=== PATIENT | female | born 1960 | race Caucasian/White ===

== ENCOUNTER → 2017-03-19 | Outpatient (CLI) | payer OTHER ==
[~2017-03-19] MED LIST: DIAZ5TAB PO; DICL75TA PO; ERYTOIN10 EACH EYE; GABA300C5 PO; HYDR-3533 PO; OMEP40CA2 PO; PANT40TA3 PO; PRED1SUS EACH EYE
[2017-03-19 10:54] LABS: AUTOMATED NEUTROPHIL # 4.8 TH/MM3 (1.8-7.7); BASOPHIL % 0.3 % (0.0-2.0); EOSINOPHIL # 0.1 TH/MM3 (0-0.4); HEMATOCRIT 38.7 % (35.0-46.0); HEMO FLAGS DIFF FINAL; LYMPH % 37.2 % (9.0-44.0); LYMPHOCYTE # 3.3 TH/MM3 (1.0-4.8); MEAN CELL VOLUME 95.3 FL (80.0-100.0); MEAN CORPUSCULAR HEMOGLOBIN 31.7 PG (27.0-34.0); MEAN CORPUSCULAR HGB CONC 33.3 % (32.0-36.0); MONO % 6.8 % (0.0-8.0); NEUT % 54.7 % (16.0-70.0); PLATELET COUNT 216 TH/MM3 (150-450); RED BLOOD COUNT 4.07 MIL/MM3 (4.00-5.30); RED CELL DISTRIBUTION WIDTH 13.6 % (11.6-17.2); WHITE BLOOD COUNT 8.8 TH/MM3 (4.0-11.0)
[2017-03-19 14:12] LABS: ALT (GPT) 21 U/L (10-53); ANION GAP 5 MEQ/L (5-15); AST (GOT) 21 U/L (15-37); BICARBONATE 29.6 MEQ/L (21.0-32.0); BLOOD UREA NITROGEN 20 MG/DL (7-18); CHLORIDE 108 MEQ/L (98-107); GLOMERULAR FILTRATION RATE 75 ML/MIN (>89); GLUCOSE,FASTING 86 MG/DL (74-99); POTASSIUM 4.2 MEQ/L (3.5-5.1); SODIUM (NA) 143 MEQ/L (136-145)
[2017-03-19 14:32] LABS: ALKALINE PHOSPHATASE 64 U/L (45-117); HDL CHOLESTEROL 71.3 MG/DL (40.0-60.0); LDL CHOLESTEROL 125 MG/DL (0-99); TOTAL BILIRUBIN ADULT 0.3 MG/DL (0.2-1.0)
== END ==
LOC: CLAB 10:28
PROVIDERS: ATTEND Family Medicine
DX: E78.5 Hyperlipidemia, unspecified (principal); K57.90 Diverticulosis of intestine, part unspecified, without perforation or abscess without bleeding; K44.9 Diaphragmatic hernia without obstruction or gangrene; F32.9 Major depressive disorder, single episode, unspecified; K22.70 Barrett's esophagus without dysplasia; M54.9 Dorsalgia, unspecified; G89.29 Other chronic pain
CPT/HCPCS: 36415; 80053; 80061; 84443; 85025

== ENCOUNTER 2017-03-22 12:16 | Emergency (ER) | payer OTHER ==
[~2017-03-22 12:16] MED LIST changes: -ERYTOIN10 EACH EYE; -HYDR-3533 PO; -PRED1SUS EACH EYE
--- NOTE | 2017-03-22 13:13 | PD ---
HPI . left cheek lesion Chief Complaint: left cheek lesion Time Seen by Provider: 12:15 Travel History International Travel<30 days: No Contact w/Intl Traveler<30days: No Traveled to known affect area: No History of Present Illness HPI 56-year-old female here with complaints of left cheek lesion. She first noticed lesion back in July 2016. She says that she tried popping it at that time and had some white thick substance come out. It has been present for the past several months. She recently saw her new primary care provider in the [facility] and was told that there was no infection at this time (past Thursday). However she was told to look out for signs of infection. She has been using some type of black salve at home to draw out any fluid. She is here because she thinks she may have an infection. She denies any fever or chills. There is no drainage from the site. She has no other complaints. She tells me she did not go to her manufacturing technician because she does not have insurance. vitals: Temperature 98.7, heart rate 67, respiratory rate 15, blood pressure 133 /85, O2 sat 99% PFS Past Medical History Arthritis: Yes (HEELS) Cancer: Yes (SQUAMOUS CELL (L. ARM)) Cardiovascular Problems: No (CARDIAC EVAL AUG 2015 - ALL WNL ) Cerebrovascular Accident: No Diabetes: No Diverticulitis: Yes Endocrine: No Gastrointestinal Disorders: Yes (gerd, diverticulitis) GERD: Yes Glaucoma: No Genitourinary: No Hepatitis: No Hiatal Hernia: Yes Hypertension: No Immune Disorder: No Musculoskeletal: Yes (arthritis in both feet with numbness and tingling, broken l ankle) Neurologic: Yes (broken L1) Psychiatric: Yes (anxiety) Reproductive: Yes Respiratory: No Migraines: No Seizures: No Thyroid Disease: No Menopausal: Yes : 2 Ovarian Cysts: Yes (LEFT OVARY REMOVED SEP 2009) Past Surgical History Abdominal Surgery: Yes (endoscopy) AICD: No Body Medical Devices: NONE Cardiac Surgery: No Ear Surgery: No Endocrine Surgery: No Eye Surgery: No Genitourinary Surgery: No Gynecologic Surgery: Yes (D&C AGE 18; LEFT OVARY REMOVED 2009) Joint Replacement: No Oral Surgery: Yes (T&A AGE 17) Pacemaker: No Thoracic Surgery: No Tonsillectomy: Yes Other Surgery: Yes Social History Alcohol Use: Yes (OCCAS WINE) Tobacco Use: Yes (OCCAS- 2CIGS PER DAY ) Substance Use: No Allergies-Medications (Allergen,Severity, Reaction): Coded Allergies: adhesive (Unverified Adverse Reaction, Severe, Itching, 03/17/17) pt states not latex, only adhesives from band aids aspirin (Unverified Adverse Reaction, Severe, 03/17/17) bacitracin (Unverified Adverse Reaction, Severe, Itching, 03/17/17) diphenhydramine (Unverified Adverse Reaction, Severe, Itching, 03/17/17) gramicidin D (Unverified Adverse Reaction, Severe, Itching, 03/17/17) neomycin (Unverified Adverse Reaction, Severe, Itching, 03/17/17) polymyxin B (Unverified Adverse Reaction, Severe, Itching, 03/17/17) Reported Meds & Prescriptions Reported Meds & Active Scripts Active Gabapentin 300 Mg Cap 300 Mg PO TID Omeprazole 40 Mg Cap 40 Mg PO DAILY Reported Diazepam 5 Mg Tab 5 Mg PO TID PRN Pantoprazole (Pantoprazole Sodium) 40 Mg Tab 40 Mg PO DAILY Diclofenac Sodium DR (Diclofenac Sodium) 75 Mg Tabdr 75 Mg PO BID Review of Systems General / Constitutional: No: Fever Eyes: No: Visual changes HENT: No: Headaches Cardiovascular: No: Chest Pain or Discomfort Respiratory: No: Shortness of Breath Gastrointestinal: No: Abdominal Pain Genitourinary: No: Dysuria Musculoskeletal: No: Pain Skin: Positive Lesions (left cheek), No Rash Neurologic: No: Weakness Psychiatric: No: Depression Endocrine: No: Polydipsia Hematologic/Lymphatic: No: Easy Bruising Physical Exam Narrative GENERAL: AAO x 3, no acute distress, Well-nourished, well-developed patient. SKIN: Warm and dry. No visible rashes or bruising. small left cheek lesion; small 2 mm opening without any drainage, black salve in lesion, no significant erythema, edema, temperature variation. not infection HEAD: Normocephalic and atraumatic. EYES: No scleral icterus. No injection or drainage. EOM intact, PERRLA ENT: No nasal drainage noted. Mucous membranes pink. Airway patent. NECK: Supple, trachea midline. No JVD. CARDIOVASCULAR: Regular rate and rhythm without murmurs, gallops, or rubs. RESPIRATORY: Breath sounds equal bilaterally. No accessory muscle use. No rhonchi or rales. GASTROINTESTINAL: visual inspection normal EXTREMITIES: No cyanosis or edema. BACK: Nontender without obvious deformity. No CVA tenderness. NEURO: CN II-12 intact, PSYCH: AAO x 3, normal affect. MDM Medical Decision Making Medical Screen Exam Complete: Yes Emergency Medical Condition: Yes Medical Record Reviewed: Yes Differential Diagnosis Skin lesion, sebaceous cyst, less likely cellulitis Narrative Course 56-year-old female here with the cheek lesion that has been present for quite some time. There is no evidence of infection. I have discussed this with the patient. I recommend she follow-up at the [facility] and possibly seek a referral for biopsy at the family practice clinic versus dermatology appointment. I've explained this to her. She is in agreement. Diagnosis Primary Impression: Lesion of skin of cheek Additional Instructions: Follow-up with Dr. Trujillo in the [facility]. Med/Other Pt SpecificInfo: No Change to Meds Disposition: 01 DISCHARGE HOME Condition: Stable Debbie Posada Mar 22, 2017 13:13
[2017-05-14] MEDS ORDERED: PRED1SUS EACH EYE (09:09)
== END 2017-03-22 12:46 | disposition home or self-care (01) ==
LOC: NEPD 12:16
DX: L98.9 Disorder of the skin and subcutaneous tissue, unspecified (principal)
CPT/HCPCS: 99281

== ENCOUNTER 2017-04-22 14:54 | Emergency (ER) | payer OTHER ==
[~2017-04-22] VITALS: Ht 162.6 cm; Wt 44.0 kg
[~2017-04-22 14:54] MED LIST changes: -PANT40TA3 PO
[2017-04-22 14:55] VITALS: BP 124/78; PULSE 74; RESP 20; TEMP 98.7; O2SAT 98
--- NOTE | 2017-04-22 15:05 | PD ---
Physical Exam Date Seen by Provider: Apr 22, 2017 Time Seen by Provider: 15:02 Narrative 57-year-old [id number] white female presents to emergency Department with complaints of right shoulder pain after a trip and fall yesterday at home. She states that she struck her face and chipped a tooth but had been seen by the dentist earlier this morning. She denies syncope. No neck or upper back pain. History of chronic back pain and osteoporosis. No numbness, tingling or focal weakness. Patient rates her pain an 8/10. Data Data Last Documented VS Vital Signs Date Time Temp Pulse Resp B/P (MAP) Pulse Ox O2 Delivery O2 Flow Rate FiO2 04/22/17 14:55 98.7 74 20 124/78 (93) 98 Room Air [facility] Medical Record Reviewed: No Supervised Visit with EMELIA: Víctor Hurtado Apr 22, 2017 15:05
--- NOTE | 2017-04-22 15:23 | PD ---
HPI Chief Complaint: Fall Time Seen by Provider: 15:23 Travel History International Travel<30 days: No Contact w/Intl Traveler<30days: No Traveled to known affect area: No History of Present Illness HPI 57-year-old female presents to the emergency department with complaint of right shoulder injury after falling last night after he twisted got stuck in between her toes and she lost her balance and fell on an outstretched arm, catching herself on the ground. Denies hitting her head or loss of consciousness. Denies neck pain or back pain. Denies anticoagulant therapy. Denies paresthesias, loss of sensation to the affected extremity. Reports decreased range of motion at the shoulder. Reports swelling of the shoulder. Denies chest pain, shortness of breath, abdominal pain, nausea, vomiting. Denies other extremity pain. Has not taken any medication to alleviate her symptoms. Has applied ice to the shoulder for symptomatic management. Pain is aggravated with movement and palpation. Has no other medical complaints. Symptoms are moderate in severity. Multiple allergies as listed on the chart. No other modifying factors or associated signs and symptoms. PFSH Past Medical History Arthritis: Yes (HEELS) Cancer: Yes (SQUAMOUS CELL (L. ARM)) Cerebrovascular Accident: No Diabetes: No Diverticulitis: Yes Endocrine: No Gastrointestinal Disorders: Yes (gerd, diverticulitis) GERD: Yes Glaucoma: No Genitourinary: No Hepatitis: No Hiatal Hernia: Yes Hypertension: No Immune Disorder: No Medical other: Yes (FX LEFT ANKLE) Musculoskeletal: Yes (arthritis in both feet with numbness and tingling, broken l ankle) Neurologic: Yes (broken L1) Psychiatric: Yes (anxiety) Reproductive: Yes Respiratory: No Migraines: No Seizures: No Thyroid Disease: No Tetanus Vaccination: < 5 Years Menopausal: Yes : 2 Ovarian Cysts: Yes (LEFT OVARY REMOVED SEP 2009) Past Surgical History Abdominal Surgery: Yes (endoscopy) AICD: No Body Medical Devices: NONE Cardiac Surgery: No Ear Surgery: No Endocrine Surgery: No Eye Surgery: No Genitourinary Surgery: No Gynecologic Surgery: Yes (D&C AGE 18; LEFT OVARY REMOVED 2009) Joint Replacement: No Oral Surgery: Yes (T&A AGE 17) Pacemaker: No Thoracic Surgery: No Tonsillectomy: Yes Other Surgery: Yes Social History Alcohol Use: Yes (OCCAS WINE) Tobacco Use: Yes (OCCAS- 2CIGS PER DAY ) Substance Use: No Allergies-Medications (Allergen,Severity, Reaction): Coded Allergies: adhesive (Unverified Adverse Reaction, Severe, Itching, 04/22/17) pt states not latex, only adhesives from band aids aspirin (Unverified Adverse Reaction, Severe, 04/22/17) bacitracin (Unverified Adverse Reaction, Severe, Itching, 04/22/17) diphenhydramine (Unverified Adverse Reaction, Severe, Itching, 04/22/17) gramicidin D (Unverified Adverse Reaction, Severe, Itching, 04/22/17) neomycin (Unverified Adverse Reaction, Severe, Itching, 04/22/17) polymyxin B (Unverified Adverse Reaction, Severe, Itching, 04/22/17) Reported Meds & Prescriptions Reported Meds & Active Scripts Active Lortab (Hydrocodone-Acetaminophen) 5-325 Mg Tab 1 Tab PO Q4H PRN Gabapentin 300 Mg Cap 300 Mg PO TID Omeprazole 40 Mg Cap 40 Mg PO DAILY Reported Diazepam 5 Mg Tab 5 Mg PO TID PRN Review of Systems Except as stated in HPI: all other systems reviewed are Neg Physical Exam Narrative GENERAL: Well-nourished, well-developed female patient, in no acute distress SKIN: Warm and dry. HEAD: Atraumatic. Normocephalic. EYES: Pupils equal and round. No scleral icterus. No injection or drainage. ENT: Mucosa pink and moist. Airway patent. NECK: Supple. Trachea midline. CARDIOVASCULAR: Regular rate. RESPIRATORY: No accessory muscle use. MUSCULOSKELETAL: Right shoulder with edema and tenderness on palpation to the anterior aspect; without erythema or ecchymosis; shoulders equal; no obvious deformity; patient able to passively abduct the shoulder less than 45; unable to assess range of motion secondary to patient guarding and pain. Right upper extremity is supple and non-tense. 2+ radial pulse and sensory intact and without erythema or edema; decreased road inspector strength; full range of motion of the elbow. No obvious deformities. No clubbing. No cyanosis. No edema. NEUROLOGICAL: Awake and alert. Oriented 3. No obvious cranial nerve deficits. Motor grossly within normal limits. Normal speech. PSYCHIATRIC: Appropriate mood and affect; insight and judgment normal. Data Data Last Documented VS Vital Signs Date Time Temp Pulse Resp B/P (MAP) Pulse Ox O2 Delivery O2 Flow Rate FiO2 04/22/17 14:55 98.7 74 20 124/78 (93) 98 Room Air Orders Orders Shoulder, Complete (>2vws) (04/22/17 15:05) Ice/Cold Pack (04/22/17 15:05) Acetamin-Hydrocod 325-5 Mg ([place] 5-325 (04/22/17 16:00) Sling Cradle Arm (04/22/17 ) MDM Medical Decision Making Medical Screen Exam Complete: Yes Emergency Medical Condition: Yes Medical Record Reviewed: Yes Differential Diagnosis Shoulder fracture, shoulder injury, shoulder sprain Narrative Course 57-year-old female with right shoulder injury after mechanical fall last night. Denies Hitting her head or loss of consciousness. Denies neck pain or back pain. Right shoulder x-ray ordered. Lortab administered in the ER. 1552: Right shoulder x-ray concludes: Multiple view examination of the right shoulder demonstrates no evidence of fracture or dislocation. Mild degenerative changes. Bony mineralization is normal. Arm sling provided for support. Instructed patient to follow up with orthopedics. Lortab prescribed for home. Instructed patient to follow up with primary care provider. Patient verbalizes understanding and agreement with treatment plan. Patient is medically cleared and stable for discharge. Discussed reasons to return to the emergency department. Patient agrees with treatment plan. The patients vital signs are stable and the patient is stable for outpatient follow-up and treatment. Patient discharged home, stable and in no acute distress. Diagnosis Primary Impression: Right shoulder injury Qualified Codes: S49.91XA - Unspecified injury of right shoulder and upper arm , initial encounter Referrals: Primary Care Physician Patient Instructions: General Instructions, Shoulder Sprain (ED) Additional Instructions: Tylenol or ibuprofen as needed and as directed to reduce pain and inflammation Rest, ice, and compress extremity to decrease pain and inflammation Arm sling for support Avoid aggravating activity; increase activity as tolerated Follow-up with primary care provider Follow-up with orthopedics as needed Return to the emergency department immediately with worsening symptoms Med/Other Pt SpecificInfo: Prescription(s) given Scripts Hydrocodone-Acetaminophen (Lortab) 5-325 Mg Tab 1 TAB PO Q4H Y for PAIN, #10 TAB 0 Refills Prov: Evelyn Langley 04/22/17 Disposition: 01 DISCHARGE HOME Condition: Stable Evelyn Langley Apr 22, 2017 15:23
--- NOTE | 2017-04-22 15:47 | RADRPT ---
EXAM DATE/TIME: 04/22/2017 15:20 [facility] COMPARISON: No previous studies available for comparison. INDICATIONS : Fall, right shoulder pain. MEDICAL HISTORY : None. SURGICAL HISTORY : None. ENCOUNTER: Initial ACUITY: 2 days PAIN SCORE: 8/10 LOCATION: Right shoulder FINDINGS: Multiple view examination of the right shoulder demonstrates no evidence of fracture or dislocation. Mild degenerative changes. Bony mineralization is normal. CONCLUSION: No acute fracture. Franklyn Herrera MD on April 22, 2017 at 15:45 Board Certified Radiologist. This report was verified electronically.
[2017-04-22] MEDS ORDERED: HYDR-3533 PO (15:56)
[2017-04-22] MEDS ORDERED: ACETAMINOPHEN/HYDROcodone 325 MG/5 MG TAB PO ONE (16:00)
[2017-05-14] MEDS ORDERED: PRED1SUS EACH EYE (09:09)
== END 2017-04-22 16:06 | disposition home or self-care (01) ==
LOC: NEPK 14:54
DX: S49.91XA Unspecified injury of right shoulder and upper arm, initial encounter (principal); W19.XXXA Unspecified fall, initial encounter
CPT/HCPCS: 73030; 99283

== ENCOUNTER 2017-05-04 11:05 | Emergency (ER) | payer OTHER ==
[~2017-05-04 11:05] MED LIST changes: -DICL75TA PO; +HYDR-3533 PO
[2017-05-04 11:10] VITALS: BP 138/87; PULSE 66; RESP 13; TEMP 98.2; O2SAT 97
--- NOTE | 2017-05-04 11:13 | PD ---
Physical Exam Time Seen by Provider: 11:11 Narrative Swelling, pain, and "something scratching" for 5 days. No new exposures. No fever or chills. No recent illness. No known trauma. Photosensitive. Not up to date on tetanus. Data Data Last Documented VS Vital Signs Date Time Temp Pulse Resp B/P (MAP) Pulse Ox O2 Delivery O2 Flow Rate FiO2 05/04/17 11:46 05/04/17 11:10 98.2 66 13 97 Orders Orders Proparacaine 0.5% Opth Soln (Alcaine 0.5 (05/04/17 11:30) [facility] Medical Record Reviewed: Yes Supervised Visit with EMELIA: No Scripts Erythromycin Opth Oint (Erythromycin Opth Oint) 5 Mg/Gm Oint 1 APPLIC EACH EYE TID for Infection for 10 Days, #1 TUBE 0 Refills Prov: FidencioKate 05/04/17 Condition: Stable Rosa Preston May 04, 2017 11:13
--- NOTE | 2017-05-04 11:22 | PD ---
HPI Chief Complaint: Eye Problems/Injury Time Seen by Provider: 11:15 Travel History International Travel<30 days: No Contact w/Intl Traveler<30days: No Traveled to known affect area: No History of Present Illness HPI 57-year-old female since evaluation of bilateral eye redness, irritation, itching, drainage, matting, foreign body sensation. Symptoms started in addition the left eye 5 days ago, spread soon afterwards into the right eye. She denies any sick contacts, cough or congestion, rash or recent travel, sore throat. She does not wear contacts. She has no other complaints at this time. PFSH Past Medical History Arthritis: Yes (HEELS) Cancer: Yes (SQUAMOUS CELL (L. ARM)) Cerebrovascular Accident: No Diabetes: No Diverticulitis: Yes Endocrine: No Gastrointestinal Disorders: Yes (gerd, diverticulitis) GERD: Yes Glaucoma: No Genitourinary: No Hepatitis: No Hiatal Hernia: Yes Hypertension: No Immune Disorder: No Musculoskeletal: Yes (arthritis in both feet with numbness and tingling, broken l ankle) Neurologic: Yes (broken L1) Psychiatric: Yes (anxiety) Reproductive: Yes Respiratory: No Migraines: No Seizures: No Thyroid Disease: No Menopausal: Yes : 2 Ovarian Cysts: Yes (LEFT OVARY REMOVED SEP 2009) Past Surgical History Abdominal Surgery: Yes (endoscopy) AICD: No Body Medical Devices: NONE Cardiac Surgery: No Ear Surgery: No Endocrine Surgery: No Eye Surgery: No Genitourinary Surgery: No Gynecologic Surgery: Yes (D&C AGE 18; LEFT OVARY REMOVED 2009) Joint Replacement: No Oral Surgery: Yes (T&A AGE 17) Pacemaker: No Thoracic Surgery: No Tonsillectomy: Yes Other Surgery: Yes Social History Alcohol Use: Yes (OCCAS WINE) Tobacco Use: Yes (OCCAS- 2CIGS PER DAY ) Substance Use: No Allergies-Medications (Allergen,Severity, Reaction): Coded Allergies: adhesive (Unverified Adverse Reaction, Severe, Itching, 04/22/17) pt states not latex, only adhesives from band aids aspirin (Unverified Adverse Reaction, Severe, 04/22/17) bacitracin (Unverified Adverse Reaction, Severe, Itching, 04/22/17) diphenhydramine (Unverified Adverse Reaction, Severe, Itching, 04/22/17) gramicidin D (Unverified Adverse Reaction, Severe, Itching, 04/22/17) neomycin (Unverified Adverse Reaction, Severe, Itching, 04/22/17) polymyxin B (Unverified Adverse Reaction, Severe, Itching, 04/22/17) Reported Meds & Prescriptions Reported Meds & Active Scripts Active Erythromycin Opth Oint 5 Mg/Gm Oint 1 Applic EACH EYE TID 10 Days Lortab (Hydrocodone-Acetaminophen) 5-325 Mg Tab 1 Tab PO Q4H PRN Gabapentin 300 Mg Cap 300 Mg PO TID Omeprazole 40 Mg Cap 40 Mg PO DAILY Reported Diazepam 5 Mg Tab 5 Mg PO TID PRN Review of Systems General / Constitutional: No: Fever Eyes: Positive: Drainage, Redness, Foreign Body Sensation, Tearing, Other ( positive for itching, matting) Physical Exam Narrative GENERAL: Well-developed well-nourished female in no acute distress SKIN: Warm and dry. HEAD: Atraumatic. Normocephalic. EYES: Pupils equal and round reactive to light extraocular muscles are intact mild conjunctival injection bilaterally. Wood's lamp reveals no areas of increased corneal uptake, negative Sanju's bilaterally. ENT: No nasal bleeding or discharge. Mucous membranes pink and moist. NECK: Trachea midline. No JVD. CARDIOVASCULAR: Regular rate and rhythm. No murmur appreciated. RESPIRATORY: No accessory muscle use. Clear to auscultation. Breath sounds equal bilaterally. Data Data Last Documented VS Vital Signs Date Time Temp Pulse Resp B/P (MAP) Pulse Ox O2 Delivery O2 Flow Rate FiO2 05/04/17 11:10 98.2 66 13 138/87 (104) 97 Orders Orders Proparacaine 0.5% Opth Soln (Alcaine 0.5 (05/04/17 11:30) [facility] Medical Decision Making Medical Screen Exam Complete: Yes Emergency Medical Condition: Yes Medical Record Reviewed: Yes Differential Diagnosis Conjunctivitis-bacterial versus viral versus chemical versus allergic versus corneal abrasion versus bilateral foreign body versus iritis Narrative Course 57-year-old female presents with bilateral eye redness, matting, drainage, itching, irritation, foreign body sensation which started in the left eye initially 5 days ago and then spread in the right eye. Wood's lamp is unremarkable the patient's symptoms are consistent with bilateral conjunctivitis. She is being discharged with erythromycin ophthalmic ointment. Diagnosis Primary Impression: Conjunctivitis Qualified Codes: H10.33 - Unspecified acute conjunctivitis, bilateral Additional Instructions: Medication as prescribed. Wash hands frequently. Wash pillow and pillowcase. Follow up with director of property management as needed and return for any emergent medical conditions. Med/Other Pt SpecificInfo: Prescription(s) given Scripts Erythromycin Opth Oint (Erythromycin Opth Oint) 5 Mg/Gm Oint 1 APPLIC EACH EYE TID for Infection for 10 Days, #1 TUBE 0 Refills Prov: Kate Nicolas 05/04/17 Disposition: 01 DISCHARGE HOME Condition: Stable [place] Al May 04, 2017 11:22
[2017-05-04] MEDS ORDERED: ERYTOIN10 EACH EYE (11:24)
[2017-05-04] MEDS ORDERED: PROPARACAINE HCL 0.5% OPHT SOLN 15 ML BTL EACH EYE ONE (11:30)
[2017-05-14] MEDS ORDERED: PRED1SUS EACH EYE (09:09)
== END 2017-05-04 11:49 | disposition home or self-care (01) ==
LOC: NEPK 11:05
DX: H10.9 Unspecified conjunctivitis (principal); K21.9 Gastro-esophageal reflux disease without esophagitis; K57.92 Diverticulitis of intestine, part unspecified, without perforation or abscess without bleeding; M13.879 Other specified arthritis, unspecified ankle and foot; F41.9 Anxiety disorder, unspecified; F17.210 Nicotine dependence, cigarettes, uncomplicated; Z79.899 Other long term (current) drug therapy
CPT/HCPCS: 99283